=== PATIENT | female | born 1970 | race Caucasian/White ===

== ENCOUNTER 2018-05-08 18:25 | Emergency (ER) | payer MEDICARE, OTHER ==
[2018-05-08] MEDS ORDERED: IPRATROPIUM-ALBUTEROL 3 ML NEB INHALATION STA (19:09)
--- NOTE | 2018-05-08 19:12 | ED ---
URI HPI - General Chief Complaint: Upper Respiratory Infection Stated Complaint: congestion Time Seen by Provider: 05/08/18 18:43 Source: patient, RN notes reviewed Mode of arrival: ambulatory Limitations: no limitations - History of Present Illness Initial Comments: This is a 48-year-old female who was a smoker who states she's had nasal congestion frontal headache cough for about 2 weeks. She's been on amoxicillin for 6 days or getting worse not better she is greenish yellow phlegm when she coughs also from her nose. She gets a little short of breath when she coughs she's had some sweats no chest pain no other modifying factors. She has a family history of COPD that she's never been diagnosed or so she states. She does have a history of bronchitis so MD Complaint: cough, rhinorrhea, nasal congestion, other - Related Data Home Medications Medication Instructions Recorded Confirmed Acetaminophen Tab [Tylenol Tab] 650 mg PO Q4H PRN 05/08/18 05/08/18 Acetaminophen [Tylenol] 650 mg PO Q4H PRN 05/08/18 05/08/18 Calcium Carb/Magnesium Ox,Carb 2 tab PO TID 05/08/18 05/08/18 [Rodolfo-Mag 500-250 MG Chewable] Chlorpheniramine Maleate 4 mg PO Q4H PRN 05/08/18 05/08/18 [Chlor-Trimeton] Gantuss 10 ml PO Q4H PRN 05/08/18 05/08/18 Ibuprofen [Motrin Ib] 600 mg PO Q8H PRN 05/08/18 05/08/18 Ondansetron HCl [Zofran] 8 mg PO Q6H PRN 05/08/18 05/08/18 Trimethobenzamide [Tigan] 300 mg RECTAL Q6H PRN 05/08/18 05/08/18 busPIRone HCl [Buspar] 10 mg PO TID PRN 05/08/18 05/08/18 traZODone HCL 150 mg PO HS 05/08/18 05/08/18 Previous Rx's Medication Instructions Recorded Albuterol Inhaler [Ventolin Hfa 2 puff INHALATION Q6HR PRN #1 05/08/18 Inhaler] inhaler Amoxicillin/Potassium Clav 1 tab PO Q12HR #20 tab 05/08/18 [Augmentin 875-125 Tablet] predniSONE 20 mg PO BID #10 tab 05/08/18 Allergies Allergy/AdvReac Type Severity Reaction Status Date / Time prochlorperazine Allergy Anaphylaxis Verified 05/08/18 19:35 [From Compazine] Review of Systems ROS Statement: Those systems with pertinent positive or pertinent negative responses have been documented in the HPI. ROS Other: All systems not noted in ROS Statement are negative. Past Medical History Past Medical History: Seizure Disorder Additional Past Medical History / Comment(s): Migraines History of Any Multi-Drug Resistant Organisms: None Reported Past Surgical History: Orthopedic Surgery Additional Past Surgical History / Comment(s): Lt shoulder surgery, lymph node removal Past Psychological History: ADD/ADHD, Anxiety, Bipolar Smoking Status: Current every day smoker Past Alcohol Use History: None Reported, Abuse, Daily Past Drug Use History: None Reported General Exam - General Exam Comments Initial Comments: This is a well-developed well-nourished awake alert oriented 3 female Limitations: no limitations General appearance: alert, anxious Head exam: Present: atraumatic, normocephalic, normal inspection Eye exam: Present: normal appearance, PERRL, EOMI. Absent: scleral icterus, conjunctival injection, periorbital swelling ENT exam: Present: other (Boggy nasal mucosa with clear drainage dull tympanic membranes) Neck exam: Present: normal inspection. Absent: tenderness, meningismus, lymphadenopathy Respiratory exam: Present: decreased breath sounds Cardiovascular Exam: Present: regular rate, normal rhythm, normal heart sounds. Absent: systolic murmur, diastolic murmur, rubs, gallop, clicks Extremities exam: Present: normal inspection, full ROM, normal capillary refill. Absent: tenderness, pedal edema, joint swelling, calf tenderness Back exam: Present: normal inspection, full ROM Neurological exam: Present: alert, oriented X3, CN II-XII intact Psychiatric exam: Present: normal affect, normal mood Skin exam: Present: warm, dry, intact, normal color. Absent: rash Course Vital Signs 05/08/18 05/08/18 05/08/18 18:41 19:15 19:24 Temperature 97.2 F L Pulse Rate 69 73 68 Respiratory 18 18 Rate Blood Pressure 117/60 O2 Sat by Pulse 97 100 Oximetry 05/08/18 05/08/18 19:34 19:55 Temperature Pulse Rate 71 82 Respiratory 17 Rate Blood Pressure O2 Sat by Pulse 97 Oximetry - Reevaluation(s) Reevaluation #1: 05/08/18 19:23 We did discuss smoking cessation and risks and benefits thereof. The entire conversation lasted 3.1 minutes Medical Decision Making - Medical Decision Making Reevaluation patient reveals that she feels much improved at this time. She currently is in treatment for alcohol she is scheduled to leave in about a week. She will be discharged after receiving oral medications she'll receive a inhaler as well as oral antibiotics and steroids. - EKG Data -: EKG Interpreted by Me EKG shows normal: sinus rhythm (Sinus rhythm a 73. Interval 148 QRS duration 106 QT since QTC 370/470 minimal voltage criteria for LVH) - Radiology Data Radiology results: report reviewed (I did review the imaging and report no acute findings.), image reviewed Disposition Clinical Impression: COPD (chronic obstructive pulmonary disease), Bronchitis, Acute bronchospasm, Sinusitis, Smoking Disposition: HOME SELF-CARE Condition: Good Instructions: Bronchospasm (ED), Acute Bronchitis (ED), Sinusitis (ED), How to Stop Smoking (ED) Prescriptions: Albuterol Inhaler [Ventolin Hfa Inhaler] 2 puff INHALATION Q6HR PRN #1 inhaler PRN Reason: Dyspnea Amoxicillin/Potassium Clav [Augmentin 875-125 Tablet] 1 tab PO Q12HR #20 tab predniSONE 20 mg PO BID #10 tab Is patient prescribed a controlled substance at d/c from ED?: No Referrals: Mirlande Cervantes MD [Primary Care Provider] - 1-2 days
--- NOTE | 2018-05-08 20:15 | XR ---
EXAMINATION TYPE: XR chest 2V DATE OF EXAM: 05/08/2018 COMPARISON: NONE HISTORY: Cough and congestion TECHNIQUE: Frontal and lateral views of the chest are obtained. FINDINGS: There is no heart failure nor confluent pneumonic infiltrate. Heart size is normal. There is left shoulder prosthesis. Costophrenic angles are clear. There is osteopenia. There is 70% anterio r wedging of T5 vertebra. IMPRESSION: No active cardiopulmonary disease. Thoracic mild kyphotic deformity.
[2018-05-08] MEDS ORDERED: AMOXICILLIN 500 MG CAP PO STA (21:00)
[2018-05-08] MEDS ORDERED: predniSONE 50 MG TAB PO STA (21:00)
[2018-05-08 21:04] VITALS: RESP 18
[2018-05-08] MEDS ORDERED: AMOXIC-POT CLAV 875-125MG 1 EACH TAB PO STA (21:05)
[2018-05-08 21:23] VITALS: BP 111/74; PULSE 72; TEMP 97.7
== END 2018-05-08 21:28 | disposition home or self-care (01) ==
LOC: EC 18:25
DX: J44.9 Chronic obstructive pulmonary disease, unspecified (principal); J40 Bronchitis, not specified as acute or chronic; J32.9 Chronic sinusitis, unspecified; J98.01 Acute bronchospasm; F31.9 Bipolar disorder, unspecified; F41.9 Anxiety disorder, unspecified; F17.200 Nicotine dependence, unspecified, uncomplicated; Z79.899 Other long term (current) drug therapy; Z88.8 Allergy status to other drugs, medicaments and biological substances; Z82.5 Family history of asthma and other chronic lower respiratory diseases
CPT/HCPCS: 94640; 93005; 71046; 99283; 99406; J7512